=== PATIENT | female | born 1995 | race Caucasian/White ===

== ENCOUNTER 2020-11-14 10:11 | Emergency (ER) | payer OTHER ==
--- OUTSIDE RECORDS SUMMARY | 2020-11-14 10:14 | XMS REPORT | Continuity of Care Document ---
:1995 Author Organization [facility] t Address [address] [place] [address] [address]. [address]. [address] [place] [address] Care Team Providers Name Role Phone Doctor Unassigned, Name Attending Clinician Unavailable Lab, Fam Pob I Attending Clinician Unavailable Problems This patient has no known problems. Allergies, Adverse Reactions, Alerts This patient has no known allergies or adverse reactions. Medications This patient has no known medications. Procedures This patient has no known procedures. Encounters Start End Encounter Admission Attending Care Care Encounter Source Date/Time Date/Time Type Type Clinicians Facility Department ID 2020-05-19 2020-05-19 Patient Doctor [facility] [id number] 00:00:00 00:00:00 Secure Msg Unassigned, HEALTH [id number] [place] [id number] [facility] [phone] Primary & 365 Specialty Care 2020-05-18 2020-05-18 Laboratory Lab, [facility] [id number] 17:23:29 17:43:29 Only Fam Pob I Health [id number] [place] [id number] [facility] [phone] nal [address] One Results This patient has no known results.
[2020-11-14] MEDS ORDERED: ONDANSETRON 4 MG/2 ML VIAL ONE (11:12)
[2020-11-14] MEDS ORDERED: NA CHLORIDE 0.9% 1,000 ML ONE (11:12)
[2020-11-14] MEDS ORDERED: MORPHINE 4 MG/ML SYR ONE (11:12)
[2020-11-14 11:14] LABS: Absolute Lymphocytes (CBC) 1.1 K/uL (0.7-4.9); Basophils % 0.3 % (0-1.3); Hematocrit 39.1 % (36.0-45.0); Lymphocytes % 9.3 % (15.3-44.8); MPV 7.2 fL (7.6-11.3); RBC Red Blood Cell Count 4.19 M/uL (3.86-4.86)
[2020-11-14 11:30] LABS: Albumin 3.2 g/dL (3.4-5.0); Bilirubin Direct 0.2 mg/dL (0-0.2); Bilirubin Total 0.5 mg/dL (0.2-1.0); Potassium 3.3 mmol/L (3.5-5.1); Protein, Total 7.1 g/dL (6.4-8.2)
[2020-11-14 11:54] LABS: Urine Blood 3+ (NEG); Urine Glucose NEGATIVE (NEG); Urine Protein TRACE (NEG)
--- NOTE | 2020-11-14 12:14 | RAD REPORT ---
EXAM DESCRIPTION: CTAbdomen Pelvis W Contrast - 11/14/2020 12:00 pm CLINICAL HISTORY: Abdominal pain. lower abdominal pain COMPARISON: No comparisons TECHNIQUE: Biphasic CT imaging of the abdomen and pelvis was performed with 100 ml non-ionic IV cont rast. All CT scans are performed using dose optimization technique as appropriate and may include automated exposure control or mA/KV adjustment according to patient size. FINDINGS: The lung bases are clear. The liver, spleen, pancreas, adrenal glands and kidneys are within normal limits. No bowel obstruction, free air, free fluid or abscess. Moderate retained stool is seen in the colon, particularly on the right. The appendix is normal. No evidence of significant lymphadenopathy. No suspicious bony findings. Mild inflammatory changes are seen in the pelvis surrounding the gynecol ogic structures. IMPRESSION: Moderate stool is retained throughout the colon. Mild inflammatory changes in the pelvis noted surrounding the gynecologic structures. Suggest clinica l correlation for the possibility of pelvic inflammation/infection.
[2020-11-14] MEDS ORDERED: FENTANYL CITR 100 MCG/2 ML ONE (12:18)
[2020-11-14] MEDS ORDERED: CEFTRIAXONE 250 MG/VIAL ONE (14:31)
[2020-11-14] MEDS ORDERED: AZITHROMYCIN 250 MG TAB ONE (14:31)
[2020-11-14] MEDS ORDERED: WATER FOR INJ,STERILE 10 ML ONE (14:35)
--- NOTE | 2020-11-14 15:05 | RAD REPORT ---
EXAM DESCRIPTION: US - Pelvis Complete - 11/14/2020 2:50 pm CLINICAL HISTORY: pelvic pain, rule out torsion Pelvic pain. COMPARISON: No comparisons FINDINGS: The uterus is normal in size, shape and echotexture. The uterus measures 9.3 x 4.3 x 3.3 c m. The endometrial stripe measures 9 mm, normal. Both ovaries are normal in size, shape and echotexture. The right ovary measures 5.4 x 2.9 x 2.8 cm. The left ovary measures 5.2 x 2.8 x 2.6 cm. No ovarian or parovarian lesions. No adnexal masses. Normal Doppler blood flow was demonstrated to both ovaries. No significant pelvic ascites. IMPRESSION: Unremarkable study.
--- NOTE | 2020-11-14 15:12 | ER ---
Nurse's Notes [facility] Name: Nevaeh Pablo Age: 25 yrs Sex: Female : 1995 Arrival Date: 11/14/2020 Time: 10:15 Bed 16 Private MD: Salomon Mae Diagnosis: Urinary tract infection, site not specified;Bacterial Vaginosis Presentation: 11/14 10:23 Chief complaint: Patient states: lower and mid abd pain/cramping and low back pain x 2 sv days. Denies n/v/d. Coronavirus screen: Client denies travel out of the [place] in the last 14 days. At this time, the client does not indicate any symptoms associated with coronavirus-19. Ebola Screen: No symptoms or risks identified at this time. Initial Sepsis Screen: Does the patient meet any 2 criteria? HR > 90 bpm. No. Patient's initial sepsis screen is negative. Does the patient have a suspected source of infection? Yes: Acute abdominal pain. Risk Assessment: Do you want to hurt yourself or someone else? Patient reports no desire to harm self or others. Onset of symptoms was November 12, 2020. 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 - Social history:: Smoking status: Patient reports the use of cigarette tobacco products, smokes one-half pack cigarettes per day. Screenin:00 Abuse screen: Denies threats or abuse. Nutritional screening: No deficits noted. vg1 Tuberculosis screening: No symptoms or risk factors identified. Fall Risk No fall in past 12 months (0 pts). No secondary diagnosis (0 pts). IV access (20 points). Ambulatory Aid- None/Bed Rest/Nurse Assist (0 pts). Gait- Normal/Bed Rest/Wheelchair (0 pts) Mental Status- Oriented to own ability (0 pts). Total Frye Fall Scale indicates No Risk (0-24 pts). Assessment: 11:00 General: Appears in no apparent distress. comfortable, Behavior is calm, cooperative. vg1 Pain: Complains of pain in mid and upper back Pain currently is 8 out of 10 on a pain scale. Quality of pain is described as sharp, Pain began 2-3 days ago. 11:00 Neuro: Level of Consciousness is awake, alert, obeys commands, Oriented to person, vg1 place, time, situation. Cardiovascular: Patient's skin is warm and dry. Respiratory: Airway is patent Respiratory effort is even, unlabored, Respiratory pattern is regular, symmetrical. GI: Bowel sounds present X 4 quads. Abd is soft X 4 quads Abdomen is tender to palpation in left lower quadrant and right lower quadrant. : Denies burning with urination, urinary frequency. EENT: No signs and/or symptoms were reported regarding the EENT system. Derm: Skin is pink, warm \T\ dry. Musculoskeletal: Range of motion: intact in all extremities. 11:48 Reassessment: Patient states pain is worse. States pain is now 10/10. Feels sharp and vg1 is having spasms. Provider notified. 13:40 Reassessment: Received v/o from Ryan to give patient 50mcg of Fentanyl IVP x1. vg1 14:28 Reassessment: US at bedside. vg1 15:14 Reassessment: Patient appears in no apparent distress at this time. Patient is alert, vg1 oriented x 3, equal unlabored respirations, skin warm/dry/pink. Vital Signs: 10:23 BP 142 / 109; Pulse 123; Resp 18; Temp 97; Pulse Ox 99% ; Weight 52.16 kg; Height 5 ft. sv 3 in. (160.02 cm); Pain 8/10; 11:00 BP 132 / 95; Pulse 118; Resp 18; Pulse Ox 100% on R/A; vg1 12:12 BP 127 / 95; Pulse 103; Resp 18; Pulse Ox 100% on R/A; vg1 12:30 BP 122 / 92; Pulse 98; Resp 16; Pulse Ox 100% on R/A; vg1 13:00 BP 125 / 99; Pulse 94; Resp 16; Pulse Ox 100% on R/A; vg1 13:30 BP 124 / 88; Pulse 93; Resp 14; Pulse Ox 100% on R/A; vg1 14:00 BP 129 / 95; Pulse 90; Resp 16; Pulse Ox 100% on R/A; vg1 14:27 Pain 4/10; vg1 14:30 BP 121 / 98; Pulse 87; Resp 14; Pulse Ox 99% on R/A; vg1 10:23 Body Mass Index 20.37 (52.16 kg, 160.02 cm) sv ED Course: 10:15 Patient arrived in ED. rg4 10:15 Salomon Mae MD is Private Physician. rg4 10:17 Ryan Minor PA is PHCP. m 10:17 Christiano Carranza MD is Attending Physician. m 10:20 Alivia Wilson, ALFREDITO is Primary Nurse. vg1 10:24 Triage completed. sv 10:25 Arm band placed on Patient placed in an exam room, on a stretcher. sv 11:13 Initial lab(s) drawn, by wi, sent to lab. Urine collected: clean catch specimen, chiqui mh5 colored. Inserted saline lock: 20 gauge in right antecubital area, using aseptic technique. Blood collected. 11:14 Patient has correct armband on for positive identification. Bed in low position. Call 5 light in reach. Side rails up X 1. Adult w/ patient. Warm blanket given. Pulse ox on. NIBP on. 11:15 Urine --Ancillary (enter results) Sent. mh5 11:15 Urine Dipstick--Ancillary (enter results) Sent. mh5 11:15 Basic Metabolic Panel Sent. mh5 11:15 CBC with Diff Sent. mh5 11:15 Hepatic Function Sent. mh5 11:15 Lipase Sent. mh5 11:[address] via wheelchair. vg1 12:01 CT Abd/Pelvis - IV Contrast Only In Process Unspecified. EDMS 12:06 Patient moved back from CT. vg1 13:40 Assist provider with pelvic exam: Set up pelvic tray. Performed by Ryan ESTEVES vg1 Specimens sent to lab. Patient tolerated well. 13:53 Wet Prep Sent. vg1 13:53 GC (GONORR/CHLAMYDIA) Probe Sent. vg1 13:58 US Pelvis Complete Sent. vg1 14:51 US Pelvis Complete In Process Unspecified. EDMS 15:22 IV discontinued, intact, bleeding controlled, No redness/swelling at site. Pressure vg1 dressing applied. Administered Medications: 11:17 Drug: NS 0.9% 1000 ml Route: IV; Rate: 1 bolus; Site: right antecubital; vg1 12:22 Follow up: IV Status: Completed infusion; IV Intake: 1000ml vg1 11:17 Drug: Zofran (Ondansetron) 4 mg Route: IVP; Site: right antecubital; vg1 11:59 Follow up: Response: No adverse reaction vg1 11:17 Drug: morphine 4 mg Route: IVP; Site: right antecubital; vg1 11:46 Follow up: Response: Pain is unchanged, physician notified vg1 11:59 Follow up: Response: RASS: Restless (+1) vg1 12:12 Drug: fentaNYL (PF) 50 mcg {Note: rass 1.} Route: IVP; Site: right antecubital; vg1 12:40 Follow up: Response: No adverse reaction; Pain is decreased vg1 13:43 Drug: fentaNYL (PF) 50 mcg {Note: rass 0.} Route: IVP; Site: right antecubital; vg1 14:27 Follow up: Pain 4/10 Adult; Response: No adverse reaction; Pain is decreased vg1 14:25 Drug: Rocephin (cefTRIAXone) 250 mg Route: IM; Site: left gluteus; vg1 15:13 Follow up: Response: No adverse reaction vg1 14:25 Drug: AZITHromycin 1000 mg Route: PO; vg1 15:13 Follow up: Response: No adverse reaction vg1 Intake: 12:22 IV: 1000ml; Total: 1000ml. vg1 Outcome: 15:11 Discharge ordered by . arleth 15:25 Discharged to home ambulatory, with family. vg1 15:25 Condition: stable 15:25 Discharge instructions given to patient, family, Instructed on discharge instructions, follow up and referral plans. medication usage, Demonstrated understanding of instructions, follow-up care, medications, Prescriptions given X 3. 15:26 Patient left the ED. vg1 Signatures: Dispatcher [employer] EDCammie Jacinto, RN RN Ryan Ramirez PA PA jmm Garcia, Rubi rg4 Martinez, Maria Alivia Tabor RN RN vg1
--- NOTE | 2020-11-14 15:12 | EDPHYS ---
Physician Documentation [facility] Name: Nevaeh Pablo Age: 25 yrs Sex: Female : 1995 Arrival Date: 11/14/2020 Time: 10:15 Bed 16 Private MD: Salomon Mae ED Physician Christiano Carranza HPI: 11/14 10:42 This 25 yrs old Female presents to ER via Ambulatory with complaints of jmm Abdominal Pain, Low Back Pain. 10:42 The patient presents with abdominal pain. Onset: The symptoms/episode began/occurred 1 jmm day(s) ago. The symptoms radiate to left back. Associated signs and symptoms: Pertinent negatives: diarrhea, fever, nausea, shortness of breath, vaginal discharge, vomiting. The symptoms are described as achy, sharp. Modifying factors: The symptoms are alleviated by nothing, the symptoms are aggravated by pressure. The patient has not experienced similar symptoms in the past. 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 - Social history:: Smoking status: Patient reports the use of cigarette tobacco products, smokes one-half pack cigarettes per day. ROS: 10:42 Constitutional: Negative for fever, chills, and weight loss, Cardiovascular: Negative jmm for chest pain, palpitations, and edema, Respiratory: Negative for shortness of breath, cough, wheezing, and pleuritic chest pain. 10:42 Abdomen/GI: Positive for abdominal pain. 10:42 All other systems are negative. Exam: 10:42 Constitutional: This is a well developed, well nourished patient who is awake, alert, jmm and in no acute distress. Head/Face: atraumatic. Eyes: EOMI, no conjunctival erythema appreciated ENT: Moist Mucus Membranes Neck: Trachea midline, Supple Chest/axilla: Normal chest wall appearance and motion. Cardiovascular: Regular rate and rhythm. No edema appreciated Respiratory: Normal respirations, no respiratory distress appreciated 10:42 Back: Normal ROM Skin: General appearance color normal MS/ Extremity: Moves all extremities, no obvious deformities appreciated, no edema noted to the lower extremities Neuro: Awake and alert, normal gait Psych: Behavior is normal, Mood is normal, Patient is cooperative and pleasant 10:42 Abdomen/GI: Inspection: abdomen appears normal, Bowel sounds: normal, Palpation: soft, moderate abdominal tenderness, in the suprapubic area, right lower quadrant and left lower quadrant. 15:08 : Pelvic Exam: External exam: is normal, Speculum exam: os that is closed, bimanual [facility] exam reveals cervical motion tenderness, discharge, yellow. Vital Signs: 10:23 BP 142 / 109; Pulse 123; Resp 18; Temp 97; Pulse Ox 99% ; Weight 52.16 kg; Height 5 ft. sv 3 in. (160.02 cm); Pain 8/10; 11:00 BP 132 / 95; Pulse 118; Resp 18; Pulse Ox 100% on R/A; vg1 12:12 BP 127 / 95; Pulse 103; Resp 18; Pulse Ox 100% on R/A; vg1 12:30 BP 122 / 92; Pulse 98; Resp 16; Pulse Ox 100% on R/A; vg1 13:00 BP 125 / 99; Pulse 94; Resp 16; Pulse Ox 100% on R/A; vg1 13:30 BP 124 / 88; Pulse 93; Resp 14; Pulse Ox 100% on R/A; vg1 14:00 BP 129 / 95; Pulse 90; Resp 16; Pulse Ox 100% on R/A; vg1 14:27 Pain 4/10; vg1 14:30 BP 121 / 98; Pulse 87; Resp 14; Pulse Ox 99% on R/A; vg1 10:23 Body Mass Index 20.37 (52.16 kg, 160.02 cm) sv MDM: 10:23 Patient medically screened. [facility] 15:08 Data reviewed: vital signs, nurses notes. Counseling: I had a detailed discussion with [facility] the patient and/or guardian regarding: the historical points, exam findings, and any diagnostic results supporting the discharge/admit diagnosis, lab results, radiology results, the need for outpatient follow up, to return to the emergency department if symptoms worsen or persist or if there are any questions or concerns that arise at home. ED course: Patient advised to follow up with ob for reevaluation. Patient is otherwise given strict return precautions. patient understood and agrees with the plan of care. . 11/14 10:33 Order name: Basic Metabolic Panel; Complete Time: 11:40 [facility] 11/14 10:33 Order name: CBC with Diff; Complete Time: 11:28 [facility] 11/14 10:33 Order name: Hepatic Function; Complete Time: 11:40 [facility] 11/14 10:33 Order name: Lipase; Complete Time: 11:40 [facility] 11/14 11:13 Order name: Urine Dipstick--Ancillary (enter results); Complete Time: 11:55 eb 11/14 11:13 Order name: Urine --Ancillary (enter results); Complete Time: 11:55 eb 11/14 11:10 Order name: CT Abd/Pelvis - IV Contrast Only; Complete Time: 12:18 [facility] 11/14 12:20 Order name: GC (GONORR/CHLAMYDIA) Probe [facility] 11/14 12:20 Order name: Wet Prep; Complete Time: 14:34 [facility] 11/14 13:52 Order name: US Pelvis Complete; Complete Time: 15:08 [facility] 11/14 10:33 Order name: IV Saline Lock; Complete Time: 11:15 [facility] 11/14 10:33 Order name: Labs collected and sent; Complete Time: 11:15 [facility] 11/14 10:33 Order name: Urine Dipstick-Ancillary (obtain specimen); Complete Time: 11:11 [facility] 11/14 10:33 Order name: Urine Test (obtain specimen); Complete Time: 11:11 [facility] 11/14 12:20 Order name: Pelvic Exam Setup; Complete Time: 13:53 jm Administered Medications: 11:17 Drug: NS 0.9% 1000 ml Route: IV; Rate: 1 bolus; Site: right antecubital; vg1 12:22 Follow up: IV Status: Completed infusion; IV Intake: 1000ml vg1 11:17 Drug: Zofran (Ondansetron) 4 mg Route: IVP; Site: right antecubital; vg1 11:59 Follow up: Response: No adverse reaction vg1 11:17 Drug: morphine 4 mg Route: IVP; Site: right antecubital; vg1 11:46 Follow up: Response: Pain is unchanged, physician notified vg1 11:59 Follow up: Response: RASS: Restless (+1) vg1 12:12 Drug: fentaNYL (PF) 50 mcg {Note: rass 1.} Route: IVP; Site: right antecubital; vg1 12:40 Follow up: Response: No adverse reaction; Pain is decreased vg1 13:43 Drug: fentaNYL (PF) 50 mcg {Note: rass 0.} Route: IVP; Site: right antecubital; vg1 14:27 Follow up: Pain 4/10 Adult; Response: No adverse reaction; Pain is decreased vg1 14:25 Drug: Rocephin (cefTRIAXone) 250 mg Route: IM; Site: left gluteus; vg1 15:13 Follow up: Response: No adverse reaction vg1 14:25 Drug: AZITHromycin 1000 mg Route: PO; vg1 15:13 Follow up: Response: No adverse reaction vg1 Disposition: 15:52 Co-signature as Attending Physician, Christiano Carranza MD. rn Disposition: 11/14/20 15:11 Discharged to Home. Impression: Urinary tract infection, site not specified, Bacterial Vaginosis. - Condition is Stable. - Discharge Instructions: Bacterial Vaginosis, Pelvic Inflammatory Disease, Urinary Tract Infection, Adult. - Prescriptions for Flagyl 500 mg Oral Tablet - take 1 tablet by ORAL route every 12 hours for 7 days; 14 tablet. Tylenol- Codeine #3 300-30 mg Oral Tablet - take 1 tablet by ORAL route every 6 hours As needed; 20 tablet. Cipro 500 mg Oral Tablet - take 1 tablet by ORAL route every 12 hours for 7 days; 14 tablet. - Medication Reconciliation Form, Thank You Letter, Antibiotic Education, Prescription Opioid Use form. - Follow up: Private Physician; When: 2 - 3 days; Reason: Recheck today's complaints, Continuance of care, Re-evaluation by your physician. Signatures: Dispatcher [employer] Cammie Jade RN RN Ryan Ramirez PA PA jmm Nieto, Roman, MD MD rn Garcia, Victoria, RN RN vg1 Corrections: (The following items were deleted from the chart) 15:26 15:11 11/14/2020 15:11 Discharged to Home. Impression: Urinary tract infection, site vg1 not specified; Bacterial Vaginosis. Condition is Stable. Forms are Medication Reconciliation Form, Thank You Letter, Antibiotic Education, Prescription Opioid Use. Follow up: Private Physician; When: 2 - 3 days; Reason: Recheck today's complaints, Continuance of care, Re-evaluation by your physician. arleth
[2020-11-16 12:57] VITALS: O2SAT 100
[2020-11-16 12:59] VITALS: TEMP 97
[2020-11-16 13:19] VITALS: BP 129/95
[2020-11-17 08:11] LABS: C.trachomatis RNA,TMA Not Detected (Not Detected)
== END 2020-11-14 15:26 | disposition home or self-care (01) ==
LOC: ER 10:11
DX: N39.0 Urinary tract infection, site not specified (principal); N76.0 Acute vaginitis; Z88.2 Allergy status to sulfonamides; Z88.8 Allergy status to other drugs, medicaments and biological substances; F17.210 Nicotine dependence, cigarettes, uncomplicated
CPT/HCPCS: 96361; 85025; 80048; 36415; 81025; 80076; 87210; 81003; 83690; 87590; 87490; 74177; 76856; 96375; 96372; 96374; 99285; Q9967; J3010; J7030; J2405; J0696

== ENCOUNTER 2021-03-26 07:40 | Emergency (ER) | payer OTHER ==
--- OUTSIDE RECORDS SUMMARY | 2021-03-26 07:44 | XMS REPORT | Continuity of Care Document ---
:1995 Author Organization [facility] t Address [address] [place] [address] Care Team Providers Name Role Phone Doctor [...] Facility Department ID 2020-05-19 2020-05-19 Patient Doctor [facility] [id number] 00:00:00 00:00:00 Secure Msg Unassigned, HEALTH [id number] [place] [id number] [facility] [phone] Primary & 365 Specialty Care 2020-05-18 2020-05-18 Laboratory Lab, [facility] [id number] 17:23:29 17:43:29 Only Fam Pob I Health [id number] [place] [id number] [facility] [phone] nal 0[address] One Results This patient has no known results.
[2021-03-26 08:06] LABS: Absolute Lymphocytes (CBC) 3.6 K/uL (0.7-4.9); Basophils % 0.7 % (0-1.3); Hematocrit 45.2 % (36.0-45.0); Lymphocytes % 29.5 % (15.3-44.8); MPV 7.6 fL (7.6-11.3); RBC Red Blood Cell Count 4.99 M/uL (3.86-4.86)
[2021-03-26] MEDS ORDERED: ONDANSETRON 4 MG/2 ML VIAL ONE (08:09)
[2021-03-26] MEDS ORDERED: LORazepam 2 MG/ML VIAL ONE ×2 (08:09→08:38)
[2021-03-26] MEDS ORDERED: NA CHLORIDE 0.9% 1,000 ML ONE ×3 (08:10→11:52)
[2021-03-26 08:13] LABS: Urine Blood Trace-lysed (Negative); Urine Glucose Negative (Negative); Urine Protein 2+ (Negative)
[2021-03-26 08:26] LABS: Protime INR 0.91
[2021-03-26 08:45] LABS: ALT/SGPT 29 U/L (12-78); AST/SGOT 33 U/L (15-37); Albumin 4.3 g/dL (3.4-5.0); Alkaline Phosphatase 72 U/L (45-117); BUN Blood Urea Nitrogen 11 mg/dL (7-18); Bicarbonate 27 mmol/L (21-32); Bilirubin Direct < 0.1 mg/dL (0-0.2); Bilirubin Total 0.6 mg/dL (0.2-1.0); Creatine Phosphokinase 432 U/L (26-192); Glucose Level 94 mg/dL (74-106); Potassium 4.2 mmol/L (3.5-5.1); Protein, Total 8.1 g/dL (6.4-8.2); Sodium Level 138 mmol/L (136-145)
[2021-03-26 09:55] LABS: Barbiturates NEGATIVE (NEGATIVE); Benzodiazepines NEGATIVE (NEGATIVE); Cocaine NEGATIVE (NEGATIVE); METHAMPHETAM POSITIVE (NEGATIVE); Methadone NEGATIVE (NEGATIVE); Opiates NEGATIVE (NEGATIVE); Phencyclidine NEGATIVE (NEGATIVE); THC Cannibis NEGATIVE (NEGATIVE)
[2021-03-26 11:05] LABS: Blood Morphology Comment NOT SEEN (NOT SEEN); Platelet Estimate ADEQ; White Blood Cell Scan OK (OK)
[2021-03-26 15:12] LABS: Thyroid Stimulating Hormone 7.06 uIU/mL (0.360-3.740)
--- NOTE | 2021-03-26 15:30 | EDPHYS ---
Physician Documentation [facility] Name: Nevaeh Pablo Age: 26 yrs Sex: Female : 1995 Arrival Date: 03/26/2021 Time: 07:42 Bed 6 Private MD: ED Physician Christiano Carranza HPI: 03/26 07:55 This 26 yrs old Female presents to ER via Unassigned with complaints of drug rn ingestion. 07:55 The patient presents to the emergency department with a history of substance abuse. rn Onset: The symptoms/episode began/occurred at an unknown time. Severity of symptoms: At their worst the symptoms were severe in the emergency department the symptoms have improved. It is unknown whether or not the patient has had similar symptoms in the past. It is unknown whether or not the patient has recently seen a physician. Pt brought in by police and EMS, wandering the streets, told police that she took "acid" "cocaine" and "marijuana". Was agitated and combative, EMS gave 100mg ketamine with some improvement. Pt intoxicated and not cooperative with exam still. . 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 - Family history:: not pertinent. - Social history:: Smoking status: unknown. - Hospitalizations: : No recent hospitalization is reported. ROS: 07:55 Unable to obtain ROS due to altered mental status. rn Exam: 07:55 Constitutional: Thin girl, agitated, uncomprehensible words Head/Face: Normocephalic, rn atraumatic. Eyes: Pupils equal round and reactive to light, extra-ocular motions intact. Cardiovascular: Tachycardic, regular. No pulse deficits. Respiratory: + hyperventilating Abdomen/GI: soft, non-tender Skin: Warm, dry, no rashes MS/ Extremity: Pulses equal, no cyanosis. Neurovascular intact. Full, normal range of motion. Equal circumference. Neuro: Awake, alert, moves all 4 extremities, fighting, agitated, uncomprehensible words. Vital Signs: 07:42 Pulse 136; Resp 20 S; Pulse Ox 100% on R/A; aa5 07:45 BP 106 / 89; Pulse 132; Resp 24; Pulse Ox 97% on R/A; ss 08:49 Temp 97.6(TE); aa5 09:15 BP 153 / 111; Pulse 133; Resp 18; Pulse Ox 100% on R/A; Pain 0/10; ss 10:27 Pulse 127; ss 11:14 BP 138 / 105; Pulse 124; Resp 16; Pulse Ox 100% on R/A; Pain 0/10; ss 11:48 BP 145 / 112; Pulse 132; Resp 17; Pulse Ox 100% on R/A; Pain 0/10; ss 13:00 BP 135 / 96; Pulse 114; Resp 18; Pulse Ox 100% on R/A; kg 14:00 BP 126 / 97; Pulse 112; Resp 18; Pulse Ox 100% on R/A; kg 15:25 BP 126 / 97; Pulse 106; rn 15:54 BP 123 / 91; Pulse 106; Resp 18; Pulse Ox 97% on R/A; kg 07:42 Unable to obtain accurate BP at this time. aa5 MDM: 07:42 Patient medically screened. rn 15:25 Differential diagnosis: drug intoxication, ETOH intoxication, AMS, delirium. Data rn reviewed: vital signs, nurses notes, lab test result(s), radiologic studies, and as a result, I will discharge patient. Counseling: I had a detailed discussion with the patient and/or guardian regarding: the historical points, exam findings, and any diagnostic results supporting the discharge/admit diagnosis, lab results, the need for outpatient follow up, to return to the emergency department if symptoms worsen or persist or if there are any questions or concerns that arise at home. Response to treatment: the patient's symptoms have markedly improved after treatment, and as a result, I will discharge patient. Special discussion: I discussed with the patient/guardian in detail that at this point there is no indication for admission to the hospital. It is understood, however, that if the symptoms persist or worsen the patient needs to return immediately for re-evaluation. ED course: Pt feels much better, drinking water, improving vitals, still doesn't remember what happened and doesn't recall if she took anything or not. Drug screen + for methamphetamine but takes Vyvanse. Pt sitting and eating, ate 2 meals, smiling, normal neuro exam, mother agrees looks much better and they are ready to go, thankful for the care they have received. . 03/26 07:44 Order name: Acetaminophen rn 03/26 07:44 Order name: Basic Metabolic Panel rn 03/26 07:44 Order name: CBC with Diff rn 03/26 07:44 Order name: ETOH Level rn 03/26 07:44 Order name: Hepatic Function rn 03/26 07:44 Order name: PT-INR rn 03/26 07:44 Order name: Salicylate; Complete Time: 09:11 rn 03/26 07:44 Order name: Urine Drug Screen; Complete Time: 10:53 rn 03/26 07:45 Order name: Acetaminophen Level; Complete Time: 09:11 EDMS 03/26 07:45 Order name: Basic Metabolic Panel; Complete Time: 09:11 EDMS 03/26 07:45 Order name: CBC with Automated Diff; Complete Time: 13:26 EDMS 03/26 07:45 Order name: Alcohol Serum/Plasma; Complete Time: 09:11 EDMS 03/26 07:45 Order name: Liver (Hepatic) Function; Complete Time: 09:11 EDMS 03/26 07:45 Order name: Protime (+INR); Complete Time: 09:11 EDMS 03/26 07:44 Order name: Urine Test (obtain specimen); Complete Time: 09:52 rn 03/26 07:44 Order name: EKG; Complete Time: 07:45 rn 03/26 07:44 Order name: EKG - Nurse/Tech; Complete Time: 09:52 rn 03/26 08:12 Order name: Urine Dipstick-Ancillary; Complete Time: 09:11 EDMS 03/26 08:13 Order name: Creatine Phosphokinase; Complete Time: 09:11 EDMS 03/26 08:13 Order name: LAB Add On eb 03/26 08:13 Order name: Urine --Ancillary (enter results); Complete Time: 09:11 eb 03/26 11:05 Order name: CBC Smear Scan; Complete Time: 13:26 EDMS 03/26 14:13 Order name: Thyroid Stimulat Hormone; Complete Time: 15:20 rn 03/26 14:13 Order name: T4 Free; Complete Time: 15:20 rn 03/26 07:44 Order name: IV Saline Lock; Complete Time: 08:49 rn 03/26 07:44 Order name: Labs collected and sent; Complete Time: 08:49 rn 03/26 07:44 Order name: Urine Dipstick-Ancillary (obtain specimen); Complete Time: 08:49 rn 03/26 09:20 Order name: Restraint:Violent/Self Destructive (Adult:18yo or >); Complete Time: 09:20 ss Administered Medications: 07:50 Drug: Ativan (LORazepam) 2 mg Route: IVP; Site: left antecubital; aa5 08:00 Follow up: Response: No adverse reaction; No change in condition ss 07:54 Drug: NS 0.9% 1000 ml Route: IV; Rate: 1000 ml; Site: left antecubital; aa5 09:52 Follow up: IV Status: Completed infusion ss 07:54 Drug: Zofran (Ondansetron) 4 mg Route: IVP; Site: left antecubital; aa5 09:51 Follow up: Response: No adverse reaction ss 08:35 Drug: Ativan (LORazepam) 1 mg Route: IVP; Site: left antecubital; ss 16:01 Follow up: Response: No adverse reaction; Marked relief of symptoms kg 09:54 Drug: NS 0.9% 1000 ml Route: IV; Rate: 1000 ml; Site: left antecubital; ss 11:36 Follow up: IV Status: Completed infusion; IV Intake: 1000ml ss 11:37 Drug: NS 0.9% 1000 ml Route: IV; Rate: 1 bolus; Site: left antecubital; ss 15:40 Follow up: Response: No adverse reaction; Marked relief of symptoms; IV Status: kg Completed infusion; IV Intake: 1000ml Disposition: 03/26/21 15:29 Discharged to Home. Impression: Altered mental status, unspecified, Restlessness and agitation, Dehydration. - Condition is Stable. - Discharge Instructions: Dehydration, Adult, Delirium. - Medication Reconciliation Form, Thank You Letter, Antibiotic Education, Prescription Opioid Use form. - Follow up: Private Physician; When: As needed; Reason: Recheck today's complaints, Re-evaluation by your physician. - Problem is new. - Symptoms have improved. Signatures: Dispatcher [employer] EDJewels Garcia RN RN iw Nieto, Roman, MD MD rn Calderon, Audri, RN RN aa5 Nevaeh Li, ALFREDITO RN ss Karolina Cervantes kg Corrections: (The following items were deleted from the chart) 16:02 15:29 03/26/2021 15:29 Discharged to Home. Impression: Altered mental status, kg unspecified; Restlessness and agitation; Dehydration. Condition is Stable. Forms are Medication Reconciliation Form, Thank You Letter, Antibiotic Education, Prescription Opioid Use. Follow up: Private Physician; When: As needed; Reason: Recheck today's complaints, Re-evaluation by your physician. Problem is new. Symptoms have improved. rn
--- NOTE | 2021-03-26 15:30 | ER ---
Nurse's Notes [facility] Name: Nevaeh Pablo Age: 26 yrs Sex: Female : 1995 Arrival Date: 03/26/2021 Time: 07:42 Bed 6 Private MD: Diagnosis: Altered mental status, unspecified;Restlessness and agitation;Dehydration Presentation: 03/26 07:42 Chief complaint: [place] [employer] reports pt was arrested for public intoxication and aa5 stated she "took acid". EMS reports pt admitted to taking "acid, cocaine, and marijuana". EMS reports pt was agitated upon their arrival and was given Ketamine 100mg IVP. EMS reports pt was found by PD under a tree naked. 07:42 Coronavirus screen: At this time, unable to obtain information related to travel aa5 outside the [place] Ebola Screen: Unable to complete the Ebola screening because:. Risk Assessment: Do you want to hurt yourself or someone else? Unable to obtain. Onset of symptoms was March 26, 2021. 07:42 Method Of Arrival: EMS: [place] [facility] aa5 07:42 Acuity: KAYLEEN 2 aa5 07:42 Care prior to arrival: IV initiated. 18 GA, in the left antecubital area. aa5 15:55 Initial Sepsis Screen: Does the patient meet any 2 criteria? HR > 90 bpm. Does the kg patient have a suspected source of infection? No. Patient's initial sepsis screen is negative. Triage Assessment: 15:55 General: Appears in no apparent distress. 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 - Family history:: not pertinent. - Social history:: Smoking status: unknown. - Hospitalizations: : No recent hospitalization is reported. Screenin:48 Abuse screen: Denies threats or abuse. Denies injuries from another. Tuberculosis ss screening: Never had TB. 15:55 Fall Risk No fall in past 12 months (0 pts). Secondary diagnosis (15 points) IV access kg (20 points). Ambulatory Aid- None/Bed Rest/Nurse Assist (0 pts). Gait- Impaired (20 pts.). Mental Status- Oriented to own ability (0 pts). Total Frye Fall Scale indicates No Risk (0-24 pts). 15:58 Nutritional screening: No deficits noted. kg Assessment: 07:45 General: Appears distressed, slender, Behavior is agitated, anxious, restless. General: ss Appears Behavior is Smells of. Pain: Denies pain. Neuro: Oriented to none Speech Pt appears to be having delusions keeps shouting "Consistency!" . Cardiovascular: Pulses are palpable in right radial artery, right posterior tibial artery, left radial artery and left posterior tibial artery. Respiratory: Respiratory effort is even, unlabored, Respiratory pattern is regular, symmetrical. GI: Abdomen is non-distended. EENT: Nares are clear Oral mucosa is moist. Throat is clear. Derm: Skin is intact, is healthy with good turgor, Skin is dry, Skin is pink, warm \\T\\ dry. normal. Injury Description: Abrasion sustained to right knee. 08:58 Reassessment: Mother at bedside. Pt recognized mother and says, "Mommy" and appears ss excited to see her mother. Pt is still confused, asking if her hands are HER hands. Verbal reassurance given by ED staff and mother. Lights remain dimmed for comfort measures. 09:00 Reassessment: Restraints removed. Pt appears calm. Mother verbalizes understanding to ss notify ED staff immediately if she feels that patient is becoming a safety concern again and expresses appreciation for care received thus far. Water given to mother and patient per request. 10:00 Reassessment: Patient appears in no apparent distress at this time. Patient and/or ss family updated on plan of care and expected duration. Pain level reassessed. Patient states feeling better. 11:14 Reassessment: Dr. Carranza notified of blood pressure. No new orders or interventions. 2nd ss Liter bolus of fluid completed. HR 124. Dr. Carranza states that he may order 3rd bolus. Father still remains at bedside. General: Appears comfortable, Behavior is calm, cooperative. 11:44 Reassessment: Assisted patient to restroom with wheelchair. Pt was unsteady at first, ss but was able to walk with steady gait slowly after a few moments. Pt voided x 1. Now back in bed on monitors. Mother at bedside. Brought food and patient is eating. third NS bolus administered now due to tachycardia. Psych: 15:56 [place] Suicide Severity Screening: In the past month, have you wished you were kg or wished you could go to sleep and not wake up? Patient responds "No." "In the past month, have you actually had any thoughts of killing yourself?" Patient responds "no." "In your lifetime, have you ever done anything, started to do anything, or prepared to do anything to end your life?" Patient responds "no.". Subjective: A\\T\\O x 4, issues have resolved. Objective: Patient is cooperative, Speech is normal, Affect is appropriate. Interventions: Patient placed in hospital gown. Safety Checks: Personal items have not been removed. Visitors are present. Acid. Commitment: Pt issued resolved. Vital Signs: 07:42 Pulse 136; Resp 20 S; Pulse Ox 100% on R/A; aa5 07:45 BP 106 / 89; Pulse 132; Resp 24; Pulse Ox 97% on R/A; ss 08:49 Temp 97.6(TE); aa5 09:15 BP 153 / 111; Pulse 133; Resp 18; Pulse Ox 100% on R/A; Pain 0/10; ss 10:27 Pulse 127; ss 11:14 BP 138 / 105; Pulse 124; Resp 16; Pulse Ox 100% on R/A; Pain 0/10; ss 11:48 BP 145 / 112; Pulse 132; Resp 17; Pulse Ox 100% on R/A; Pain 0/10; ss 13:00 BP 135 / 96; Pulse 114; Resp 18; Pulse Ox 100% on R/A; kg 14:00 BP 126 / 97; Pulse 112; Resp 18; Pulse Ox 100% on R/A; kg 15:25 BP 126 / 97; Pulse 106; rn 15:54 BP 123 / 91; Pulse 106; Resp 18; Pulse Ox 97% on R/A; kg 07:42 Unable to obtain accurate BP at this time. aa5 ED Course: 07:42 Patient arrived in ED. ss 07:42 Christiano Carranza MD is Attending Physician. rn 07:42 Arm band placed on Patient placed in an exam room, on a stretcher. aa5 08:00 Triage completed. aa5 08:00 Patient has correct armband on for positive identification. Bed in low position. Call ss light in reach. Side rails up X2. Adult w/ patient. monitor car operator on. Pulse ox on. NIBP on. Warm blanket given. 08:00 Maintain EMS IV. Dressing intact. Good blood return noted. Site clean \\T\\ dry. Gauge \\T\\ ss site: 20 gauge in L AC. Patient maintains SpO2 saturation greater than 95% on room air. 08:06 Straight cath inserted, using sterile technique, 16 Fr. Specimen obtained. Returned ss clear yellow urine. Patient tolerated well. Thermoregulation: warm blanket given to patient. 09:13 Nevaeh Li, ALFREDITO is Primary Nurse. ss 12:27 Primary Nurse role handed off by Nevaeh Li RN kg 12:27 Karolina Cervantes is Primary Nurse. kg 14:30 T4 Free Sent. kg 14:30 Thyroid Stimulat Hormone Sent. kg 15:55 No provider procedures requiring assistance completed. IV discontinued, intact, kg bleeding controlled, No redness/swelling at site. Pressure dressing applied. Restraints: 07:45 Violent/Self Destructive Restraint: Order: obtained. Initiated March 26, 2021 at 07:45 ss Staff present during the Initiation of Restraint: Pt was combative/ confused and flailing around in bed. Pt was noted attempting to do backbends in the bed repeatedly at times almost hyperextending her neck. Verbal redirection attempted and unsuccessful. Jewels Graham RN, Nevaeh Li, ALFREDITO Carranza MD and 2 police officers and 4 EMS manager ship. Observed actions/behavior: destructive, violent, harming self/others, confusion/disorientation, difficulty remembering or follow instructions, impaired decision making, repeated attempts to get up from bed/chair without assistance. unable to follow instructions, Less restrictive alternatives attempted: decreased environmental stimuli, 1:1 patient care, placed near Nurse station, reoriented to location, medicated for pain/anxiety, performed diversional activities, covered lines/tubes, eliminated unnecessary lines/tubes, verbal de-escalation performed, Alternative interventions: Ineffective. Clinical justification for use: Violent/self destructing behavior impacts therapeutic environment. Poses a serious danger to physical safety of self \\T\\ others. Monitoring: Mental status: agitated/restless, confused. Cognition: poor judgement, poor safety awareness, poor attention/concentration, unable to follow commands, Circulation: Within defined parameters (based on Cardiovascular assessment). Skin integrity: Within defined parameters (based on Integumentary assessment) No injuries due to Restraints noted. Restraint status: Side rails up x 4 Started. Soft wrist restraint (Right) Started. Soft wrist restraint (Left) Started. Soft ankle restraint (Right) Started. Soft ankle restraint (Left) Started. 08:00 Violent/Self Destructive Restraint: Violent/Self Destructive Restraint: Observed ss actions/behavior: violent, harming self/others, confusion/disorientation, difficulty remembering or follow instructions, impaired decision making, repeated attempts to get up from bed/chair without assistance. unable to follow instructions, Less restrictive alternatives attempted: decreased environmental stimuli, 1:1 patient care, placed near Nurse station, reoriented to location, medicated for pain/anxiety, performed diversional activities, Alternative interventions: Ineffective. Clinical justification for use: Violent/self destructing behavior impacts therapeutic environment. Poses a serious danger to physical safety of self \\T\\ others. Monitoring: Mental status: agitated/restless, confused. Cognition: poor judgement, poor safety awareness, poor attention/concentration, unable to follow commands, Circulation: Within defined parameters (based on Cardiovascular assessment). Skin integrity: Within defined parameters (based on Integumentary assessment) No injuries due to Restraints noted. Restraint status: Side rails up x 4 Soft wrist restraint (Right) Continued. Soft wrist restraint (Left) Continued. Soft ankle restraint (Right) Continued. Soft ankle restraint (Left) Continued. 08:15 Violent/Self Destructive Restraint: Observed actions/behavior: destructive, violent, ss confusion/disorientation, difficulty remembering or follow instructions, impaired decision making, unable to follow instructions, Less restrictive alternatives attempted: decreased environmental stimuli, 1:1 patient care, placed near Nurse station, reoriented to location, medicated for pain/anxiety, performed diversional activities, Alternative interventions: Ineffective. Clinical justification for use: Violent/self destructing behavior impacts therapeutic environment. Poses a serious danger to physical safety of self \\T\\ others. Monitoring: Mental status: agitated/restless, confused. Cognition: poor judgement, poor safety awareness, Impulsive, poor attention/concentration, unable to follow commands, Circulation: Within defined parameters (based on Cardiovascular assessment). Skin integrity: Within defined parameters (based on Integumentary assessment) No injuries due to Restraints noted. Restraint status: Side rails up x 4 Continued. Soft wrist restraint (Right) Continued. Soft wrist restraint (Left) Continued. Soft ankle restraint (Right) Continued. Soft ankle restraint (Left) Continued. 08:30 Violent/Self Destructive Restraint: Observed actions/behavior: destructive, ss confusion/disorientation, difficulty remembering or follow instructions, impaired decision making, Less restrictive alternatives attempted: decreased environmental stimuli, 1:1 patient care, placed near Nurse station, reoriented to location, medicated for pain/anxiety, performed diversional activities, Alternative interventions: Ineffective. Clinical justification for use: Violent/self destructing behavior impacts therapeutic environment. Poses a serious danger to physical safety of self \\T\\ others. Monitoring: Mental status: confused. Cognition: poor safety awareness, poor attention/concentration, unable to follow commands, Circulation: Within defined parameters (based on Cardiovascular assessment). Skin integrity: Within defined parameters (based on Integumentary assessment) No injuries due to Restraints noted. Restraint status: Side rails up x 4 Continued. Soft wrist restraint (Right) Continued. Soft wrist restraint (Left) Continued. Soft ankle restraint (Right) Continued. Soft ankle restraint (Left) Continued. 08:30 Violent/Self Destructive Restraint: Observed actions/behavior: ss confusion/disorientation, difficulty remembering or follow instructions, impaired decision making, repeated attempts to get up from bed/chair without assistance. unable to follow instructions, Less restrictive alternatives attempted: decreased environmental stimuli, 1:1 patient care, placed near Nurse station, reoriented to location, medicated for pain/anxiety, performed diversional activities, Alternative interventions: Ineffective. Clinical justification for use: Violent/self destructing behavior impacts therapeutic environment. Poses a serious danger to physical safety of self \\T\\ others. Monitoring: Mental status: confused. Cognition: poor judgement, poor safety awareness, Impulsive, poor attention/concentration, unable to follow commands, Circulation: Within defined parameters (based on Cardiovascular assessment). Skin integrity: Within defined parameters (based on Integumentary assessment) No injuries due to Restraints noted. Restraint status: Side rails up x 4 Continued. Soft wrist restraint (Right) Continued. Soft wrist restraint (Left) Continued. Soft ankle restraint (Right) Continued. Soft ankle restraint (Left) Continued. 08:45 Violent/Self Destructive Restraint: Observed actions/behavior: ss confusion/disorientation, difficulty remembering or follow instructions, impaired decision making, Less restrictive alternatives attempted: 1:1 patient care, reoriented to location, performed diversional activities, Alternative interventions: Ineffective. Clinical justification for use: Violent/self destructing behavior impacts therapeutic environment. Poses a serious danger to physical safety of self \\T\\ others. Monitoring: Mental status: agitated/restless, confused. Cognition: poor attention/concentration, Circulation: Within defined parameters (based on Cardiovascular assessment). Skin integrity: Within defined parameters (based on Integumentary assessment) No injuries due to Restraints noted. Restraint status: Side rails up x 4 Continued. Soft wrist restraint (Right) Continued. Soft wrist restraint (Left) Continued. Soft ankle restraint (Right) Continued. Soft ankle restraint (Left) Continued. 09:00 Violent/Self Destructive Restraint: Observed actions/behavior: ss confusion/disorientation, Less restrictive alternatives attempted: 1:1 patient care, performed diversional activities, Alternative interventions: Effective. Monitoring: Mental status: confused. Cognition: poor attention/concentration, Circulation: Within defined parameters (based on Cardiovascular assessment). Skin integrity: Within defined parameters (based on Integumentary assessment) No injuries due to Restraints noted. Readiness for Discontinue: Release criteria met. No longer exhibiting violent or self destructive behavior. Alt interventions effective. Restraint discontinuation: Discontinued at March 26, 2021 at 09:00 Effective alternative interventions: 1:1 patient care, reoriented to location, Mother at bedside at 0858. Pt recognizes mother and seems to calm her down even more. Pt following commands. Administered Medications: 07:50 Drug: Ativan (LORazepam) 2 mg Route: IVP; Site: left antecubital; aa5 08:00 Follow up: Response: No adverse reaction; No change in condition ss 07:54 Drug: NS 0.9% 1000 ml Route: IV; Rate: 1000 ml; Site: left antecubital; aa5 09:52 Follow up: IV Status: Completed infusion ss 07:54 Drug: Zofran (Ondansetron) 4 mg Route: IVP; Site: left antecubital; aa5 09:51 Follow up: Response: No adverse reaction ss 08:35 Drug: Ativan (LORazepam) 1 mg Route: IVP; Site: left antecubital; ss 16:01 Follow up: Response: No adverse reaction; Marked relief of symptoms kg 09:54 Drug: NS 0.9% 1000 ml Route: IV; Rate: 1000 ml; Site: left antecubital; 11:36 Follow up: IV Status: Completed infusion; IV Intake: 1000ml ss 11:37 Drug: NS 0.9% 1000 ml Route: IV; Rate: 1 bolus; Site: left antecubital; ss 15:40 Follow up: Response: No adverse reaction; Marked relief of symptoms; IV Status: kg Completed infusion; IV Intake: 1000ml Intake: 11:36 IV: 1000ml; Total: 1000ml. ss 15:40 IV: 1000ml; Total: 2000ml. kg Outcome: 15:29 Discharge ordered by MD. rn 15:59 Discharged to home ambulatory, with family. kg 15:59 Condition: improved 15:59 Discharge instructions given to patient, family, Instructed on discharge instructions, follow up and referral plans. Demonstrated understanding of instructions, follow-up care. 16:02 Patient left the ED. kg Signatures: Jewels Graham RN ALFREDITO Christiano Carranza MD MD rn Calderon, Audri, RN RN aa5 Nevaeh Li RN RN Karolina Cervantes kg Corrections: (The following items were deleted from the chart) 09:29 07:45 Violent/Self Destructive Restraint: Order: obtained. Initiated March 26, 2021 at 07:45 Staff present during the Initiation of Restraint: Pt was combative/ confused and flailing around in bed. Pt was noted attempting to do backbends in the bed repeatedly at times almost hyperextending her neck. Verbal redirection attempted and unsuccessful. . Observed actions/behavior: destructive, violent, harming self/others, confusion/disorientation, difficulty remembering or follow instructions, impaired decision making, repeated attempts to get up from bed/chair without assistance. unable to follow instructions, Less restrictive alternatives attempted: decreased environmental stimuli, 1:1 patient care, placed near Nurse station, reoriented to location, medicated for pain/anxiety, performed diversional activities, covered lines/tubes, eliminated unnecessary lines/tubes, verbal de-escalation performed, Alternative interventions: Ineffective. Clinical justification for use: Violent/self destructing behavior impacts therapeutic environment. Poses a serious danger to physical safety of self \\T\\ others. Monitoring: Mental status: agitated/restless, confused. Cognition: poor judgement, poor safety awareness, poor attention/concentration, unable to follow commands, Circulation: Within defined parameters (based on Cardiovascular assessment). Skin integrity: Within defined parameters (based on Integumentary assessment) No injuries due to Restraints noted. Restraint status: Side rails up x 4 Started. Soft wrist restraint (Right) Started. Soft wrist restraint (Left) Started. Soft ankle restraint (Right) Started. Soft ankle restraint (Left) Started. ss 10:50 07:42 Chief complaint: [place] PD reports pt was arrested for public intoxication aa5 and stated she "took acid". EMS reports pt admitted to taking "acid, cocaine, and marijuana". EMS reports pt was agitated upon their arrival and was given Ketamine 100mg IVP. aa5
[2021-03-26 16:10] VITALS: TEMP 97.6
[2021-03-26 16:29] VITALS: BP 123/91; O2SAT 97
--- NOTE | 2021-03-28 09:23 | EKG ---
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
== END 2021-03-26 16:02 | disposition home or self-care (01) ==
LOC: ER 07:40
DX: R45.1 Restlessness and agitation (principal); E86.0 Dehydration; Z78.1 Physical restraint status; Z88.2 Allergy status to sulfonamides; Z88.8 Allergy status to other drugs, medicaments and biological substances
CPT/HCPCS: 96361; 93005; 85025; 80048; 36415; 80320; 82550; 80329 ×2; 81025; 85610; 80076; 80307 ×8; 84443; 81003; 84439; 51702; 96375; 96374; 99285; J7030 ×3; J2405